=== PATIENT | female | born 1985 | race Caucasian/White ===

== ENCOUNTER 2017-06-04 20:28 | Emergency (ER) | payer SELFPAY ==
[~2017-06-04] VITALS: Ht 167.6 cm; Wt 113.0 kg
[2017-06-04] MEDS ORDERED: HYDROCODONE/ACETAMINOPHEN 10/325MG TABLET PO ONE (23:00)
[2017-06-04 23:01] VITALS: BP 167/114
[2017-06-04 23:41] LABS: BASOPHILS % 0.4 % (0.0-2.0); EOSINOPHILS % 2.7 % (0.0-5.0); HEMATOCRIT. 35.6 % (36.0-48.0); HEMOGLOBIN. 11.8 g/dL (12.0-16.0); LYMPHOCYTES % 22.5 % (20.0-50.0); MEAN CORPUSCULAR VOLUME 75.4 fL (81.0-99.0); MEAN PLATELET VOLUME 6.8 fl (7.4-10.4); MONOCYTES % 3.8 % (2.0-8.0); NEUTROPHILS % 70.6 % (40.0-76.0); PLATELET 441 x1000/uL (130-400); RED BLOOD CELL COUNT 4.72 mill/uL (4.2-5.4); RED CELL DISTRIBUTION WIDTH 15.8 % (11.6-14.6)
[2017-06-04 23:49] LABS: CARBON DIOXIDE 25 mEq/L (21-32); CHLORIDE 104 mEq/L (98-107)
== END 2017-06-05 00:38 | disposition home or self-care (01) ==
LOC: ER 20:28
DX: I10 Essential (primary) hypertension (principal); R20.0 Anesthesia of skin; F17.200 Nicotine dependence, unspecified, uncomplicated; Z88.0 Allergy status to penicillin
CPT/HCPCS: 36415; 80053; 81025; 85025; 93005; 99285; Z7610